=== PATIENT | male | born 1995 | race African-American/Black ===

== ENCOUNTER 2017-03-15 18:11 | Emergency (ER) | payer OTHER ==
[~2017-03-15] VITALS: Ht 175.3 cm; Wt 63.6 kg
[2017-03-15] MEDS ORDERED: KETOROLAC TROMETHAMINE 30 MG/ML VIAL IM ONE (19:45)
[2017-03-15 20:34] VITALS: BP 131/78
== END 2017-03-15 20:37 | disposition home or self-care (01) ==
LOC: EMS 18:14 → EDSEX 18:14 → EDBD 18:14 → EMS 20:37
DX: R07.9 Chest pain, unspecified (principal); F17.200 Nicotine dependence, unspecified, uncomplicated
CPT/HCPCS: 71010; 93005; 96372; 99284; J1885